=== PATIENT | female | born 1940 | race Caucasian/White ===

== ENCOUNTER → 2020-05-23 09:29 | Outpatient (BNVA) | payer MEDICARE, OTHER, SELFPAY | PROVIDERS: Family Provider Internal Medicine; Referring Provider Internal Medicine; Visit Provider Specialist | DX: M25.562 Pain in left knee; M17.12 Unilateral primary osteoarthritis, left knee; Z01.812 Encounter for preprocedural laboratory examination | CPT/HCPCS: 73560; 73565; 81000; 87081 ==

== ENCOUNTER 2020-05-31 09:24 | Observation (INO) | payer MEDICARE, OTHER, SELFPAY ==
[2020-05-27 09:22] VITALS: BMI 27.6
[2020-05-27 09:54] LABS: Add Urine Microscopic? NO
--- NOTE | 2020-05-27 10:05 | ANES.PREANE2 ---
Pre-Anesthetic Assessment Pre-Anesthetic Assessment: Height/Weight: Height 1.65 m Weight 75.296 kg Preop Diagnosis: DJD left knee Proposed Procedure: Operation Date: 05/31/20 07:00 Proposed Procedures p Total Knee Arthroplasty 95076 M17.12(Left) - Patricia Dorantes MD Familial anesthetic complications: None Social: Social History: No alcohol and No tobacco Exam: Pre-Anes Outpt Exam: alert, oriented x 3, clear to auscultation bilaterally and regular rate & rhythm Airway: Cervical ROM: WNL MP: 2 Dentition: False Pulmonary: Comments: ? COPD CV/HEM: CV/HEM: HTN Metabolic: Metabolic: Hyperlipidemia Musc/skel: Musc/skel: OA/DJD Neuropsych: Neuropsych: None reported Anesthetic Plan: ASA status: 2 Anesthesia: General and Regional (specify below) Risk of > 500 ml blood loss (7ml/kg in children): Yes, adequate IV access and fluids planned PFSH Anesthesia PFSH: Medical History Accelerated essential hypertension Surgical History History of knee replacement Right Family History Denies family history of Diabetes Hypertension Stroke Social History Smoking and tobacco status: never smoked Alcohol intake: never Data Anesthesia CBC & Chem 7: 05/27/20 09:47 05/27/20 09:47 Cardiac Studies: No Data to Display
[2020-05-27 10:17] LABS: Basophils # 0.1 10^3/uL (0.0-0.1); Basophils % 0.8 %; Eosinophils # 0.1 10^3/uL (0.0-0.8); Hematocrit 45.1 % (37.0-47.0); Hemoglobin 14.4 g/dL (11.5-15.3); Lymphocytes # 1.8 10^3/uL (0.8-4.8); Mean Corpuscular HGB Conc 31.9 g/dL (30.0-36.0); Mean Corpuscular Hemoglobin 32.4 pg (28.0-34.0); Mean Corpuscular Volume 101.6 fL (81-99); Mean Platelet Volume 10.9 fL (7.4-10.4); Monocytes # 0.5 10^3/uL (0.2-0.9); Monocytes % 8.2 %; Neutrophils # 3.64 10^3/uL (1.8-7.7); Neutrophils % 59.7 %; Nucleated Red Blood Cells % 0 %; Platelet Count 313 10^3/cmm (130-400); Red Blood Count 4.44 10^6/uL (4.1-5.3); Red Cell Distribution Width 12.2 % (12.1-15.1); White Blood Count 6.1 10^3/uL (4.0-10.0)
[2020-05-27 10:30] LABS: Alanine Aminotransferase 14 U/L (0-33); Albumin Level 4.8 g/dL (3.5-5.2); Alkaline Phosphatase 86 IU/L (35-105); Anion Gap 13.4 (5-19); Aspartate Amino Transferase 18 U/L (0-32); Blood Urea Nitrogen 15 mg/dL (8-23); Calcium 9.4 mg/dL (8.5-10.5); Carbon Dioxide 26 mmol/L (22-29); Chloride 103 mmol/L (98-107); Globulin 2.8 g/dL (1.3-4.6); Glucose 113 mg/dL (65-115); Osmolality Calculated 283 mOsm/kg (285-295); Potassium 4.4 mmol/L (3.5-5.1); Sodium 138 mmol/L (136-145); Total Bilirubin 0.6 mg/dL (0.15-1.2); Total Protein 7.6 g/dL (6.6-8.7)
[2020-05-27 10:32] LABS: Bilirubin Urine Neg (NEGATIVE); Blood Urine Neg (Negative); Glucose Urine UA Norm (Normal); Ketones Urine Negative (Negative); Leukocyte Esterase Urine Negative (Negative); Nitrate Urine Negative (Negative); Protein Urine Neg (Negative); Specific Gravity, Urine 1.005 (1.005-1.030); Sulfosalicylic Acid Urine Negative (Negative); Urine Appearance Clear (CLEAR); Urine Color Yellow (Yellow); Urobilinogen Urine Norm (Negative); pH Urine 8 (5-7)
[2020-05-29 07:43] LABS: Coronavirus Lab Test PTC SEE REPORT
[2020-05-31] VITALS (19 sets, daily range): BP systolic 102–176; BP diastolic 59–101; PULSE 73–100; RESP 14–30; TEMP 36.3–37; O2SAT 92–98
--- NOTE | 2020-05-31 05:44 | ECG_ITS ---
[facility] Test Date: 2020-05-31 Pat Name: Krystal Gomez Department: Room: Gender: Female Emergency Medicine Physician Assistant: : [id number] Requested By: Patricia Dorantes Order Number: [id number] Desi MD: Desirae Dumont M.D. Measurements Intervals [place] Rate: 76 P: 50 RI: 135 QRS: 21 QRSD: 86 T: 25 QT: 366 QTc: 412 Interpretive Statements SINUS RHYTHM No previous ECG available for comparison Electronically Signed On 05-31-2020 20:45:33 CDT by Desirae Dumont M.D. [id number]
[2020-05-31] MEDS: sodium chloride 0.9% 1,000 ML 30 ML IV (06:03)
[2020-05-31] MEDS: CELEcoxib 200 mg Capsule 400 MG PO (06:04)
[2020-05-31] MEDS: vancomycin 1,000 MG in sodium chloride 0.9% 250 ML 250 MG IV (06:13)
[2020-05-31] MEDS: fentaNYL 50 mcg/mL INJ 2mL IVP (06:35)
[2020-05-31] MEDS: midazolam 1 mg/mL INJ 2 mL 2 MG IVP (06:35)
--- NOTE | 2020-05-31 06:51 | P.HPUD_ITS ---
Surgery/Procedure H&P Update DATE OF PROCEDURE: May 31, 2020 DATE H&P PERFORMED: 05/18/20 H&P UPDATE INFORMATION: I have reviewed H&P completed within last 30 days, I have examined patient prior to procedure, No changes to prior documentation and H&P is in [facility] EMR on date indicated PREOP DIAGNOSIS: DJD left knee PLANNED PROCEDURE: Operation Date: 05/31/20 07:00 Proposed Procedures p Total Knee Arthroplasty 56638 M17.12(Left) - Patricia Dorantes MD Related Problem List Diagnoses (1) Primary osteoarthritis of left knee:
--- NOTE | 2020-05-31 06:53 | ANES.PROC ---
Anesthesia Procedures Procedure/Date: 05/31/20 Nerve Block ^: Nerve Block 1: Main Anesthesia: general anesthesia Time Out Performed: Yes Consent: requested by attending/covering physician, from patient, risks and benefits reviewed and patient agrees to proceed Nerve block location: adductor canal (L) Anesthesia monitors applied: pulse oximetry and oxygen Nerve block position: semi sitting Anesthetic Used: ropivicaine 0.5% and with decadron (4 mg) Amount of anesthesia used (mL): 30 Ultrasound used to: recognize landmarks Interscalene/Femoral BLK: 4 stimuplex 21 g needle used for position and inplane approach, visualize local anesthetic spread and no vascular puncture identified Injection: neg aspiration of heme Patient Tolerated Procedure: well Complications: none
[2020-05-31] MEDS: ceFAZolin 1,000 mg SDV 1000 MG IRRIGATION ×2 (07:46)
[2020-05-31] MEDS: vancomycin 1,000 MG SDV 1000 MG XX (07:47)
--- NOTE | 2020-05-31 08:34 | SUR.OPER ---
Family Notified Of Patient's Status Via Phone.
--- NOTE | 2020-05-31 09:21 | SUR.PHASEI ---
0918 PATIENT TO PACU FROM OR. RR EVEA AND UNLABORED. ORAL AIRWAY IN PLACE. SPO2 93% ON SIMPLE MASK AT 8L. DRESSING TO LEFT KNEE, CDI WITH DELVIS WRAP IN PLACE. LEFT PEDAL PULSE STRONG AND MARKED.
--- NOTE | 2020-05-31 09:25 | SUR.PHASEI ---
0924 ORAL AIRWAY REMOVED AT THIS TIME. SPO2 94% ON SIMPLE MASK AT 8L.
--- NOTE | 2020-05-31 09:30 | XRR_ITS ---
PROCEDURE INFORMATION: Exam: XR Left Knee Exam date and time: 05/31/2020 9:41 AM Age: 79 years old Clinical indication: Condition or disease; Other: S/P total knee left; Patient HX: S/P left total knee today; Additional info: Status post left total knee TECHNIQUE: Imaging protocol: XR Left knee. Views: Frontal and cross table lateral views of the left knee. COMPARISON: CR (LOW EXM, ) 05/23/2020 9:35 AM FINDINGS: Bones/joints: The patient is status post total knee replacement. There is 2.5 mm of lucency above 1 side of the the femoral component at the femoral metaphysis on the lateral image, laterality indeterminate (i.e. medial versus lateral; possibly lateral?). The patellar, femoral, and tibial prosthetic joint components appear to be otherwise in good position and alignment. There is no bony or component fracture identified. There is no joint effusion identified. Soft tissues: Operative site emphysema is present. Anterior surgical cutaneous clips. XR/XR knee LT 1-2V 05649 IMPRESSION: Status post total knee replacement. Please see above comments.
--- NOTE | 2020-05-31 09:33 | PM.OP ---
Operative Report Date of procedure: May 31, 2020 Pre-op Diagnosis: DJD left knee Post-op diagnosis: same Procedure Done: Left total knee arthroplasty utilizing the following components: The [place] Triathlon total knee system with a size 3 left posterior stabilized press-fit femoral component, a size 3 press-fit tibial component and a size 3 x 11 posterior stabilized tibial insert with an asymmetric 32 x 10 mm patella Specimens removed/disposition: Bone, disposed of Pathology: none sent Surgeon: Patricia Dorantes Social Organization Professor: Koby Hastings Anesthesia: General (Intubated, ASA 2) Estimated blood loss (mL): 15 Tourniquet time (min): 90 Tourniquet time: 250 mmHg IV fluids (mL): 1,100 Urine output (mL): 150 Complications: None Condition: stable Disposition: PACU (then to floor) Brief History: This 79-year-old woman presented with comments of severe left knee pain. She previously underwent right total knee arthroplasty in April [address] Mike. She subsequently became infected and had a washout per Dr. Milner. She presents now with significant pain in her left knee. She wishes to proceed with left total knee arthroplasty. She understands the risks and complications which were explained to her. Consents were signed and questions are answered. Procedure: The patient was brought to the operating theater, and after undergoing adequate general intubated anesthesia, ASA 3, with supplemental regional block, the left lower extremity was prepped with Dura-Prep and draped in usual fashion following placement of a tourniquet high on the leg. The leg was then draped free. Following prepping and draping, the leg was exsanguinated, and the tourniquet was elevated to 250 mmHg for a total tourniquet time of 90 minutes. Prior to elevation of the tourniquet, but following exposure of the site of surgery, a surgical pause was performed. At the time of the surgical pause, we confirmed the site and side of surgery. Additionally, we confirmed the appropriate and timely administration of preoperative antibiotics, Ancef 2 g and transexemic acid 1 g each pre and post op. The availability of equipment was confirmed, and the patient's identity was verbalized as well. Following the surgical pause, an incision was made centering over the patella continuing proximally and distally as necessary to allow access to the knee joint. Dissection continued through skin and soft tissues using a scalpel. Hemostasis was obtained using electrocautery. The skin incision was followed by a median parapatellar arthrotomy. The leg was extended and the patella was everted. Following this, the leg was returned to flexed position. The distal femur was exposed and a drill hole was made in this for placement of the distal femoral jig. The distal femoral jig was set at 5? of valgus. The distal femoral cutting block was then placed in appropriate position, and an louis wing was used to confirm an appropriate amount of distal femur would be resected. The distal femoral resection was accomplished with 8 mm of bone being resected distally. After the distal femoral resection had been accomplished, the femur was measured and it measured a size 3. Medial lateral dimension also measured a size 3. A size 3 femoral cutting block was placed in position, and we were then able to accomplish the anterior, posterior and chamfer cuts. This jig was then removed and the notch guide was placed in position. With the notch guide in appropriate position, the notch was excised including resection of the anterior and posterior cruciate ligaments. This notch was to allow for the posterior stabilized femoral component. At this point, the femur was prepared and attention was directed to the proximal tibia. The posterior knee retractor was placed along with medial and lateral retractors. Further resection of the menisci was accomplished as we had better visualization. A complete meniscectomy was performed both medially and laterally with care being taken to protect the popliteus. Retractors were then placed so that the proximal tibia was well visualized. A drill hole was then made in the tibia for placement of the intramedullary guide. This guide was placed so that approximately 2 mm of bone would be resected from the deficient medial tibial plateau. The intramedullary guide was utilized supplemented with an extramedullary guide to assure appropriate alignment for the proximal tibial resection. The proximal tibial jig was then evaluated, pinned in position, and the proximal tibial resection was accomplished without difficulty. The jig was removed and the proximal tibia was measured. It measured a size 3. A trial reduction was accomplished with an 11 mm insert. We had good balance to the knee with full extension and excellent varus-valgus stability. The femoral component was placed in position for the trial reduction, and the knee was placed through range of motion. There was excellent stability with excellent varus-valgus alignment with appropriate patellar tracking. This was felt to be the appropriate size insert. There was full extension and flexion without lift off and the rotation of the tibia was marked. Alignment was checked from the hip to the ankle, and this was noted to be appropriate as well. Attention was then directed to the patella. The patella was measured with a caliper. We resected sufficient patella to leave approximately 14 mm of patella remaining. Measurements of the patella then indicated that a size asymmetric 32 mm x 10 mm was the appropriate patellar size. We then placed the jig to drill for the 3 pegs of the press-fit patella, and these drill holes were made without incident. A trial patella was then placed and the knee was placed through range of motion. The patella was noted to track nicely without evidence of subluxation. The femur was prepared for a press-fit femur by drilling 2 holes for the femoral pegs. All trial components were subsequently removed. The tibial tray was then pinned into position, and we broached the tibia for the stem of the tibial component. Subsequently, 4 drill holes were made for placement of the press-fit tibia. This was accomplished without difficulty. Care was taken to assure appropriate rotation of the tibia as well as appropriate position on the proximal tibia. The tibial tray was completely seated on the proximal tibia. Following broaching, the tibial guide was removed, and all surfaces were copiously irrigated. The surfaces were then dried and a bone plug was placed into the distal femur. Exparel was also injected at this point. The Tritanium tibia was impacted into position. The beaded femur was then impacted into position in a cementless fashion. The tibial insert was placed. The patella was pressed into position with a patellar clamp. The knee was irrigated with 20 mL of Betadine and 500 mL of normal saline, and this was allowed to remain in the knee for 3-4 minutes. This was allowed to remain in the knee for 3 full minutes. The knee was then copiously irrigated and suctioned dry. Attention was then directed to closure. Closure was accomplished with 0 Vicryl in the fascial tissues, 2-0 Monocryl was used in the subcutaneous tissues, and the skin was closed with skin chuyita followed by Exofin. A sterile dressing was then placed consisting of Telfa, 4 x 4's, ABDs, sterile soft roll, and an Flako wrap. The patient was returned the Recovery Room in a satisfactory condition. X-rays were obtained there. The patient will be discharged to the floor for postoperative rehabilitation and pain management. She'll be under observation status with plans to discharge home with home health. Associated Problem List Diagnoses (1) Primary osteoarthritis of left knee:
--- NOTE | 2020-05-31 10:10 | SUR.PHASEI ---
0950 PATIENT TO MED SURG. NO DISTRESS. TOLERATING ICE CHIPS, DENIES PAIN OR NAUSEA. DRESSING TO LEFT KNEE, CDI WITH DELVIS WRAP IN PLACE. LEFT PEDAL PULSE STRONG AND INTACT.
[2020-05-31] MEDS: chlorhexidine gluconate 0.12% Btl 473 mL 30 ML MUCOUS MEM ×3 (12:31→23:06)
[2020-05-31] MEDS: calcium acetate 667 mg Capsule PO ×2 (14:15→23:05)
[2020-05-31] MEDS: calcium carbonate 500 mg Chew Tablet 1000 MG PO (17:18)
[2020-05-31] MEDS: mupirocin oint 22 gm 1 APPLIC NASAL (17:18)
[2020-05-31] MEDS: CELEcoxib 200 mg Capsule PO (17:18)
[2020-05-31] MEDS: iron polysaccharide complex 150 mg Capsule PO (17:18)
[2020-05-31] MEDS: sennosides-docusate Tablet 2 TAB PO (17:18)
[2020-06-01] VITALS (9 sets, daily range): BP systolic 117–161; BP diastolic 68–76; PULSE 78–89; RESP 16–18; TEMP 36.6–37.4; O2SAT 91–96
[2020-06-01 04:52] LABS: Basophils % 0.2 %; Eosinophils % 0.1 %; Hematocrit 34.2 % (37.0-47.0); Hemoglobin 10.5 g/dL (11.5-15.3); Lymphocytes # 1.7 10^3/uL (0.8-4.8); Lymphocytes % 18.9 %; Mean Corpuscular HGB Conc 30.7 g/dL (30.0-36.0); Mean Corpuscular Hemoglobin 32.2 pg (28.0-34.0); Mean Corpuscular Volume 104.9 fL (81-99); Mean Platelet Volume 11.1 fL (7.4-10.4); Monocytes # 1.1 10^3/uL (0.2-0.9); Monocytes % 11.5 %; Neutrophils # 6.32 10^3/uL (1.8-7.7); Neutrophils % 68.9 %; Nucleated Red Blood Cells % 0 %; Platelet Count 217 10^3/cmm (130-400); Red Blood Count 3.26 10^6/uL (4.1-5.3); Red Cell Distribution Width 12.2 % (12.1-15.1); White Blood Count 9.2 10^3/uL (4.0-10.0)
[2020-06-01 05:18] LABS: Anion Gap 10.9 (5-19); Blood Urea Nitrogen 12 mg/dL (8-23); Calcium 8.3 mg/dL (8.5-10.5); Carbon Dioxide 25 mmol/L (22-29); Chloride 107 mmol/L (98-107); Glucose 113 mg/dL (65-115); Osmolality Calculated 285 mOsm/kg (285-295); Potassium 3.9 mmol/L (3.5-5.1); Sodium 139 mmol/L (136-145)
[2020-06-01] MEDS: oxyCODONE 5 mg IR Tab/Cap PO ×3 (05:22→12:26)
[2020-06-01] MEDS: CELEcoxib 200 mg Capsule PO ×2 (05:22→17:16)
[2020-06-01] MEDS: vancomycin 1,000 MG in sodium chloride 0.9% 250 ML 250 MG IV (05:23)
[2020-06-01] MEDS: atorvastatin 40 mg Tablet 20 MG PO (08:04)
[2020-06-01] MEDS: calcium acetate 667 mg Capsule PO ×2 (08:04→14:54)
[2020-06-01] MEDS: ascorbic acid 500 mg Tablet PO (08:04)
[2020-06-01] MEDS: calcium carbonate 500 mg Chew Tablet 1000 MG PO ×2 (08:04→17:15)
[2020-06-01] MEDS: PARoxetine 20 mg Tablet 40 MG PO (08:04)
[2020-06-01] MEDS: cholecalciferol (vitamin D3) 1,000 unit Tablet 1000 UNIT PO (08:04)
[2020-06-01] MEDS: sennosides-docusate Tablet 2 TAB PO ×2 (08:05→17:15)
[2020-06-01] MEDS: mupirocin oint 22 gm 1 APPLIC NASAL ×2 (08:05→17:17)
[2020-06-01] MEDS: multivitamin therapeutic Tablet 1 TAB PO (08:05)
[2020-06-01] MEDS: iron polysaccharide complex 150 mg Capsule PO ×2 (08:05→17:16)
[2020-06-01] MEDS: aspirin 325 mg EC Tablet PO (08:05)
[2020-06-01] MEDS: losartan 50 mg Tablet 100 MG PO (08:05)
[2020-06-01] MEDS: chlorhexidine gluconate 0.12% Btl 473 mL 30 ML MUCOUS MEM ×3 (08:06→17:17)
[2020-06-01] MEDS: acetaminophen 500 mg Tablet 1000 MG PO (13:10)
--- NOTE | 2020-06-01 14:00 | PM.DCS ---
Discharge Providers Date of Admission: 05/31/20 09:24 Date of Discharge: June 01, 2020 Attending Provider at Admission: Patricia Dorantes MD Attending Provider at Discharge: Patricia Dorantes MD Primary Care Provider: Dani Herrera MD Diagnoses at Discharge Discharge Diagnosis (1) Primary osteoarthritis of left knee: Status: Acute Reason for Visit Reason for Visit: Left knee osteoarthritis Hospital Course Hospital Course: She was admitted for same-day surgery on May 31, 2020. She underwent the following procedure: Left total knee arthroplasty utilizing the following components: The [employer] Triathlon total knee system with a size 3 left posterior stabilized press-fit femoral component, a size 3 press-fit tibial component and a size 3 x 11 posterior stabilized tibial insert with an asymmetric 32 x 10 mm patella. On the first postoperative day, she worked with physical therapy. Discussion was undertaken with discharged home with home health. She was in agreement. Discharge Summary: Patient's dressing was removed the day following surgery. Her wound is benign. Calf is soft and nontender. There is no evidence of DVT. There is no evidence of infection. She appears neurologically intact. She did have some pain earlier this morning, but this has resolved this afternoon. She feels like she can go home, but she does have some concerns. She will work with physical therapy this afternoon and be discharged home following that. I have received word from the floor that she is comfortable with her therapies and is ready for discharge to home. Physical Exam Const: COMMON NORMALS: no acute distress, average body habitus, patient oriented x3 and alert GENERAL APPEARANCE: cooperative and comfortable ORIENTATION/CONSCIOUSNESS: Yes awake HENMT: COMMON NORMALS: normocephalic and atraumatic HEAD & SCALP: normocephalic and atraumatic Eye: GENERAL EYE: appearance normal, both eyes and all related structures Chest: COMMONS NORMALS: normal inspection of the chest Resp: COMMON NORMALS: normal respiratory effort EFFORT & INSPECTION: Yes able to speak in complete sentences and Yes symmetric chest movement Extremity: LEFT LOWER EXTREMITY: Yes knee joint Left knee: Yes inspection (Wound is benign. There is no evidence of DVT. There is no drainage.), Yes palpation (Minimal tenderness to palpation about the incision.), Yes ROM (Not evaluated secondary to recent surgery. Patient is working with physical therapy.) and Yes neurovascular exam (Intact with no evidence of DVT.) Neuro: COMMON NORMALS: patient oriented x3 SENSORIUM/ORIENTATION: Yes alert Psych: COMMON NORMALS: mental status grossly normal APPEARANCE: Yes grossly normal ATTITUDE: Yes calm and Yes engaged ATTENTION/CONCENTRATION: Yes attention grossly intact Skin: COMMON NORMALS: no rashes or lesions noted GENERAL SKIN EXAM: no rashes or lesions noted Urinary Catheter Management^: F: Cath Placed During This Visit: yes, but has since been removed by the nurse Reason for Continuing Indwelling Catheter: Required Immobilization for Trauma or Surgery or Anesthesia Urinary Catheter Date of Insertion: 05/31/20 Urinary Catheter Time of Insertion: 07:15 Date Urinary Catheter Removed: 06/01/20 Time Urinary Catheter Discontinued: 06:30 Discharge Data Data Completed and Pending: Completed Studies During Hospitalization Category Date Time Status XR knee LT 1-2V 7 3560 Urgent Exams 05/31/20 09:30 Completed Labs from last 24 hours 06/01/20 06/01/20 04:15 04:15 WBC 9.2 RBC 3.26 L Hgb 10.5 L Hct 34.2 L MCV 104.9 H MCH 32.2 MCHC 30.7 RDW 12.2 Plt Count 217 MPV 11.1 H Neut % (Auto) 68.9 Lymph % (Auto) 18.9 Gentry % (Auto) 11.5 Eos % (Auto) 0.1 Baso % (Auto) 0.2 Neut # (Auto) 6.32 Lymph # (Auto) 1.7 Gentry # (Auto) 1.1 H Eos # (Auto) 0.0 Baso # (Auto) 0.0 Nucleated RBC % (a uto) 0 Nucleated RBCs # 0.0 Sodium 139 Potassium 3.9 Chloride 107 Carbon Dioxide 25 Anion Gap 10.9 BUN 12 Creatinine 0.7 GFR Calculation Not Reportable Glucose 113 Calculated Osmolal ity 285 Calcium 8.3 L Vitals: Last Vital Signs Temp 99.4 F 06/01/20 11:37 Pulse 78 06/01/20 11:37 Resp 18 06/01/20 12:26 BP 161/75 06/01/20 11:37 Pulse Ox 92 06/01/20 11:37 Discharge Plan Discharge Patient Disposition: Home Health Service Condition: Stable Prescriptions: New celecoxib 200 mg Capsule 200 mg PO Q12H Qty: 60 RF: 0 oxycodone 5 mg Tablet 5 - 10 mg PO Q4H PRN (Reason: Moderate Pain) Qty: 40 RF: 0 aspirin 325 mg Tablet,Delayed Release (Dr/Ec) 325 mg PO DAILY 30 Days Qty: 0 RF: 0 acetaminophen 500 mg Tablet 1,000 mg PO Q8H 30 Days Qty: 180 RF: 0 Continued paroxetine HCl 40 mg tablet 40 mg PO DAILY RF: 0 buspirone 30 mg tablet 30 mg PO BID RF: 0 losartan 100 mg tablet 100 mg PO DAILY RF: 0 lovastatin 40 mg tablet 40 mg PO DAILY RF: 0 coenzyme Q10 [Co Q-10] 200 mg capsule 200 mg PO DAILY RF: 0 biotin 5,000 mcg tablet,disintegrating 10,000 mcg PO DAILY RF: 0 ascorbate calcium (vitamin C) 500 mg Tablet 500 mg PO DAILY RF: 0 cholecalciferol (vitamin D3) [D3-50 Cholecalciferol] 1,250 mcg (50,000 unit) Capsule 1 mcg PO DAILY RF: 0 calcium acetate 667 mg Tablet 667 mg PO TID RF: 0 vitamin E succinate 100 unit Tablet 450 mg PO DAILY RF: 0 Held diclofenac sodium 75 mg tablet,delayed release (DR/EC) 75 mg PO BID RF: 0 Hold Instructions: Resume on 07/01/20. Resume after taking Celebrex for 30 days Discharge Orders: Discharge Order (Routine); Ordered 05/31/20 Ordered By: Patricia Dorantes Referrals: [facility] ([facility]) [Outside] Patricia Dorantes MD [Physician] - 06/09/20 11:30 am Dani Herrera MD [Primary Care Provider] - 06/13/20 10:40 am ([phone]) Discharge Diet: Advance as tolerated and Usual diet Discharge Activity: Resume usual activity, Increase activity as tolerated and As per PT/OT instructions Activity Restrictions/Additional Instructions: Ice and Elevation to Left Knee, Work with home health and home PT Discharge Attestations Time Spent in Discharge Care*: greater than 30 min Specific Discharge Activities: Specific discharge activities: educating patient, discussing with pcp/other providers, documenting/other paperwork and evaluating patient/reviewing data Quality Metrics Clinical Quality Measures During this hospital stay, did patient experience: None Coding Level of Care Code Acute Video Journalist for [facility] Fwd Exam Comprehensive Diagnoses Primary osteoarthritis of left knee M17.12
[2020-06-01] MEDS: oxyCODONE 5 mg IR Tab/Cap 10 MG PO (17:13)
== END 2020-06-01 18:10 | disposition home health service (06) ==
LOC: MEDSURG 09:46
PROVIDERS: Admitting Provider Specialist; PCP Internal Medicine; Visit Provider Specialist
PROC: (CPT 27447; principal; 2020-05-31 07:00)
DX: M17.12 Unilateral primary osteoarthritis, left knee (principal); I10 Essential (primary) hypertension; J44.9 Chronic obstructive pulmonary disease, unspecified; E78.5 Hyperlipidemia, unspecified; M19.90 Unspecified osteoarthritis, unspecified site
CPT/HCPCS: 27447; 12345; 36415; 73560; 73562; 80048; 80053; 81003; 85025; 87635; 93005; 96361; 96365; 96374; 97110; 97116; 97161; 97165; 97530; 97535; C1776; C9290; G0378; J0131; J0690; J1100; J2250; J2370; J2704; J2795; J3010; J3370; J3490; J7030; J7050

== ENCOUNTER → 2020-06-09 11:38 | Outpatient (BNVA) | payer MEDICARE, OTHER, SELFPAY | PROVIDERS: PCP Internal Medicine; Visit Provider Specialist | DX: Z96.652 Presence of left artificial knee joint (principal) | CPT/HCPCS: 73560; 73565 ==

== ENCOUNTER → 2020-06-20 13:12 | Outpatient (BNVA) | payer MEDICARE, OTHER, SELFPAY | PROVIDERS: PCP Internal Medicine; Visit Provider Specialist | DX: Z47.1 Aftercare following joint replacement surgery (principal); Z96.652 Presence of left artificial knee joint | CPT/HCPCS: 73560; 73565 ==

== ENCOUNTER 2020-07-04 06:00 | Outpatient (RCR) | payer MEDICARE, OTHER, SELFPAY | END 2020-07-04 23:59 | disposition home or self-care (01) | LOC: MPT 06:00 | PROVIDERS: PCP Internal Medicine; Referring Provider Specialist; Visit Provider Specialist | DX: Z47.1 Aftercare following joint replacement surgery (principal); Z96.652 Presence of left artificial knee joint | CPT/HCPCS: 97110; 97161 ==

== ENCOUNTER 2020-07-05 06:00 | Outpatient (RCR) | payer MEDICARE, OTHER, SELFPAY | END 2020-08-03 23:59 | disposition home or self-care (01) | LOC: MPT 06:00 | PROVIDERS: PCP Internal Medicine; Referring Provider Specialist; Visit Provider Specialist | DX: Z47.1 Aftercare following joint replacement surgery (principal); Z96.642 Presence of left artificial hip joint | CPT/HCPCS: 97110; 97140; G0283 ==

== ENCOUNTER → 2020-07-13 15:23 | Outpatient (BNVA) | payer MEDICARE, OTHER, SELFPAY | PROVIDERS: PCP Internal Medicine; Visit Provider Specialist | DX: M17.12 Unilateral primary osteoarthritis, left knee (principal); Z96.652 Presence of left artificial knee joint | CPT/HCPCS: 73560; 73565 ==

== ENCOUNTER 2020-08-10 14:09 | Outpatient (RCR) | payer MEDICARE, OTHER, SELFPAY | END 2020-09-03 23:59 | disposition home or self-care (01) | LOC: MPT 14:09 | PROVIDERS: PCP Internal Medicine; Referring Provider Specialist; Visit Provider Specialist | DX: Z47.1 Aftercare following joint replacement surgery (principal); Z96.652 Presence of left artificial knee joint | CPT/HCPCS: 97110; 97116; 97140; G0283 ==

== ENCOUNTER 2020-09-04 06:00 | Outpatient (RCR) | payer MEDICARE, OTHER, SELFPAY | END 2020-10-03 23:59 | disposition home or self-care (01) | LOC: MPT 06:00 | PROVIDERS: PCP Internal Medicine; Visit Provider Specialist | DX: Z47.1 Aftercare following joint replacement surgery (principal); Z96.652 Presence of left artificial knee joint | CPT/HCPCS: 97110; G0283 ==

== ENCOUNTER → 2020-09-14 12:07 | Outpatient (BNVA) | payer MEDICARE, OTHER, SELFPAY | PROVIDERS: PCP Internal Medicine; Visit Provider Specialist | DX: M17.12 Unilateral primary osteoarthritis, left knee (principal) | CPT/HCPCS: 73560; 73565 ==

== ENCOUNTER → 2021-01-18 15:25 | Outpatient (BNVA) | payer MEDICARE, OTHER, SELFPAY | PROVIDERS: PCP Internal Medicine; Visit Provider Specialist | DX: Z96.652 Presence of left artificial knee joint (principal); M17.12 Unilateral primary osteoarthritis, left knee | CPT/HCPCS: 73560; 73565 ==

== ENCOUNTER → 2022-04-25 13:54 | Outpatient (BNVA) | payer MEDICARE, OTHER, SELFPAY | PROVIDERS: PCP Internal Medicine; Visit Provider Nurse Practitioner Family | DX: Z48.89 Encounter for other specified surgical aftercare (principal); Z96.652 Presence of left artificial knee joint | CPT/HCPCS: 73560; 73565; 99213 ==

== ENCOUNTER 2023-12-16 08:18 | Outpatient (CLI) | payer OTHER, SELFPAY ==
--- NOTE | 2023-12-16 08:23 | MR_ITS ---
WS: [id number] MRI HEAD WITHOUT CONTRAST TECHNIQUE: Sagittal T1, T2 axial, T2 axial FLAIR, axial and coronal T1 images, axial susceptibility w eighted imaging, axial diffusion weighted images, and coronal T2 images were obtained. CLINICAL INFORMATION: MINIMAL COGNITIVE IMPAIRMENT COMPARISON: None. FINDINGS: No evidence of restricted diffusion to suggest acute ischemia. Ventricular system and basilar cistern s are patent. Mild small vessel changes. Moderate parenchymal volume loss. Advanced parenchymal volum e loss involving the anterior temporal lobes and hippocampal formations can be seen with Alzheimer's dementia. Supratentorial volume loss more pronounced in the parietal lobes. A few tiny chronic lacunar infarcts in the cerebellum. Normal vascular flow voids at the skull base. No extra-axial fluid collections. No evidence of mass or mass effect. Paranasal sinuses are well aera cassia. Normal posterior nasopharynx. Mastoid air cells are well aerated. No suspicious foci of hemosiderin on the susceptibly weighted images. Normal optic chiasm and pituita ry infundibulum. No other suspicious findings. IMPRESSION: 1. No evidence of restricted diffusion to suggest acute ischemia. 2. Mild small vessel changes with moderate parenchymal volume loss more pronounced in the parietal l obes. 3. No hemosiderin on susceptibility-weighted images. 4. Advanced symmetric atrophy temporal lobes and hippocampal formations with asymmetric volume loss in the parietal lobes nonspecific but can be seen with Alzheimer's dementia in the appropriate clinic al setting 5. No other suspicious findings.
== END 2023-12-16 08:19 | disposition home or self-care (01) ==
LOC: RAD 08:20
PROVIDERS: PCP Internal Medicine; Visit Provider Physician Assistant
DX: R41.89 Other symptoms and signs involving cognitive functions and awareness (principal)
CPT/HCPCS: 70551